=== PATIENT | female | born 1985 | race Caucasian/White ===

== ENCOUNTER 2021-07-15 11:10 | Outpatient (CLI) | payer OTHER, BC, SELFPAY ==
--- NOTE | ~2021-07-15 | MMUS_ITS ---
EXAMINATION: MM diagnostic [facility]ary BI w [place], US breast BI complete HISTORY: Left breast lumps TECHNIQUE: ML, MLO and craniocaudal 3-D tomosynthesis images of both breasts were performed and synth etic 2-D images were generated. CAD analysis was submitted and interpreted. High resolution bilateral complete breast ultrasound was performed. COMPARISON: None BREAST PARENCHYMAL COMPOSITION: The breasts are extremely dense, which lowers the sensitivity of mamm ography. FINDINGS: MAMMOGRAPHIC FINDINGS: There are scattered benign calcifications in each breast. No malignant calcification is evident. Bilateral circumscribed breast masses are noted, measuring 3 cm or greater dimension bilaterally. Scar ateral breast ultrasound examination is recommended. No architectural distortion, skin thickening or retraction is identified. ULTRASOUND: There are multiple bilateral breast simple cysts, measuring up to 3.7 cm on the right, 4.8 cm on the left. No suspicious solid lesion or shadowing is evident. IMPRESSION: 1. Multiple bilateral breast cysts; no mammographic evidence of malignancy 2. Routine mammographic screening is recommended. BI-RADS Category 2: Benign Reviewed, dictated and finalized at location A. IMPRESSION: 1. Multiple bilateral breast cysts; no mammographic evidence of malignancy 2. Routine mammographic screening is recommended. BI-RADS Category 2: Benign
== END 2021-07-15 11:11 | disposition home or self-care (01) ==
LOC: ANHIMG 11:14
PROVIDERS: Visit Provider Obstetrics & Gynecology
DX: N60.02 Solitary cyst of left breast (principal); N60.01 Solitary cyst of right breast
CPT/HCPCS: 76641; 77062; 77066; G0279